=== PATIENT | male | born 1975 | race Two or more races ===

== ENCOUNTER 2024-05-06 00:59 | Emergency (ER) | payer SELFPAY ==
[~2024-05-06] VITALS: Ht 185.4 cm; Wt 97.7 kg
[2024-05-06 01:22] LABS: BASOPHILS % (AUTO) 0.4 % (0-1); EOSINOPHILS # (AUTO) 0.1 X10'3 (0-0.9); EOSINOPHILS % (AUTO) 1.6 % (0-6); HEMOGLOBIN 14.8 g/dl (14.0-17.9); LYMPHOCYTES # (AUTO) 3.2 X10'3 (1.1-4.8); LYMPHOCYTES % (AUTO) 35.8 % (21-51); MEAN CORPUSCULAR HEMOGLOBIN 30.5 PG (27.0-31.0); MEAN CORPUSCULAR HGB CONC 33.7 g/dL (33.0-36.5); MEAN CORPUSCULAR VOLUME 90.5 FL (78-98); MEAN PLATELET VOLUME 7.6 FL (7.4-10.4); MONOCYTES # (AUTO) 0.8 X10'3 (0-0.9); MONOCYTES % (AUTO) 9.2 % (2-12); NEUTROPHILS # (AUTO) 4.8 X10'3 (1.8-7.7); PLATELET COUNT 356 X10'3 (140-440); RED BLOOD COUNT 4.86 X10'6 (4.70-6.10); RED CELL DISTRIBUTION WIDTH 14.9 % (11.5-14.5)
[2024-05-06 01:29] LABS: ALANINE AMINOTRANSFERASE 38 U/L (12-78); ALBUMIN 3.9 G/DL (3.4-5.0); ALBUMIN/GLOBULIN RATIO 1.1 (1.1-1.5); ALKALINE PHOSPHATASE 80 IU/L (46-116); ANION GAP 9 (8-16); ASPARTATE AMINO TRANSFERASE 36 U/L (10-37); BILIRUBIN,TOTAL 0.5 MG/DL (0.1-1.0); BLOOD UREA NITROGEN 18 MG/DL (7-18); BUN/CREATININE RATIO 14.8 (10.0-20.0); CALCIUM 8.6 MG/DL (8.5-10.1); CHLORIDE 103 MMOL/L (99-107); CREATININE 1.22 MG/DL (0.60-1.10); GLUCOSE 102 MG/DL (70-104); POTASSIUM 3.2 MMOL/L (3.5-5.1); SODIUM 139 MMOL/L (135-145); TOTAL CARBON DIOXIDE 26.6 MMOL/L (24-32); TOTAL PROTEIN 7.3 G/DL (6.4-8.2); eCRCL 83 ML/MIN; eGFR 63 ML/MIN
[2024-05-06] MEDS: LORazepam 2 mg/ml vial IV ONE (01:33)
[2024-05-06 01:37] LABS: PRO BRAIN NATRIURETIC PEPTIDE < 30 PG/ML (0-125)
[2024-05-06] MEDS ORDERED: LORA-269 PO (03:36)
[2024-05-06 03:48] VITALS: BP 123/83; PULSE 101; RESP 14; TEMP 98.6; O2SAT 96
[2024-05-06] MEDS: chlordiazePOXIDE 25mg capsule PO ONE (03:52)
== END 2024-05-06 03:52 | disposition home or self-care (01) ==
LOC: ER 01:00
DX: F41.9 Anxiety disorder, unspecified (principal); R07.9 Chest pain, unspecified
CPT/HCPCS: 36415; 71045; 80053; 83880; 84484; 85025; 93005; 96374; 99285; J2060

== ENCOUNTER 2024-05-20 22:28 | Emergency (ER) | payer SELFPAY ==
[~2024-05-20] VITALS: Ht 185.4 cm; Wt 113.6 kg
[~2024-05-20 22:28] MED LIST: LORA-269 PO
[2024-05-20 22:38] VITALS: TEMP 97.7
[2024-05-20 22:51] LABS: BASOPHILS # (AUTO) 0.1 X10'3 (0-0.2); BASOPHILS % (AUTO) 0.7 % (0-1); EOSINOPHILS # (AUTO) 0.2 X10'3 (0-0.9); EOSINOPHILS % (AUTO) 2.4 % (0-6); HEMATOCRIT 45.5 % (42.0-52.0); HEMOGLOBIN 15.3 g/dl (14.0-17.9); LYMPHOCYTES # (AUTO) 3.3 X10'3 (1.1-4.8); LYMPHOCYTES % (AUTO) 39.7 % (21-51); MEAN CORPUSCULAR HEMOGLOBIN 30.6 PG (27.0-31.0); MEAN CORPUSCULAR HGB CONC 33.7 g/dL (33.0-36.5); MEAN CORPUSCULAR VOLUME 90.9 FL (78-98); MEAN PLATELET VOLUME 7.4 FL (7.4-10.4); MONOCYTES # (AUTO) 0.7 X10'3 (0-0.9); MONOCYTES % (AUTO) 8.8 % (2-12); NEUTROPHILS # (AUTO) 4.1 X10'3 (1.8-7.7); NEUTROPHILS % (AUTO) 48.4 % (42-75); PLATELET COUNT 323 X10'3 (140-440); RED BLOOD COUNT 5.01 X10'6 (4.70-6.10); RED CELL DISTRIBUTION WIDTH 14.8 % (11.5-14.5); WHITE BLOOD COUNT 8.4 X10'3 (4.5-11.0)
[2024-05-20 23:00] LABS: ALANINE AMINOTRANSFERASE 59 U/L (12-78); ALBUMIN 3.7 G/DL (3.4-5.0); ALBUMIN/GLOBULIN RATIO 1.1 (1.1-1.5); ALKALINE PHOSPHATASE 108 IU/L (46-116); ANION GAP 10 (8-16); ASPARTATE AMINO TRANSFERASE 37 U/L (10-37); BILIRUBIN,TOTAL 0.3 MG/DL (0.1-1.0); BLOOD UREA NITROGEN 22 MG/DL (7-18); BUN/CREATININE RATIO 17.5 (10.0-20.0); CALCIUM 8.9 MG/DL (8.5-10.1); CHLORIDE 106 MMOL/L (99-107); CREATININE 1.26 MG/DL (0.60-1.10); GLUCOSE 108 MG/DL (70-104); POTASSIUM 3.2 MMOL/L (3.5-5.1); SODIUM 142 MMOL/L (135-145); TOTAL CARBON DIOXIDE 25.8 MMOL/L (24-32); TOTAL PROTEIN 7.2 G/DL (6.4-8.2); eCRCL 80 ML/MIN; eGFR 61 ML/MIN
[2024-05-20] MEDS ORDERED: LORazepam 2 mg/ml vial IV ONE (23:05)
[2024-05-20 23:09] LABS: PRO BRAIN NATRIURETIC PEPTIDE < 30 PG/ML (0-125)
[2024-05-20] MEDS: LORazepam 2 mg/ml vial IM ONE (23:24)
[2024-05-20] MEDS: potassium Cl 20 mEq SR tablet PO STA (23:24)
[2024-05-21 00:26] VITALS: BP 125/89; PULSE 88; RESP 16; O2SAT 98
== END 2024-05-21 02:20 | disposition home or self-care (01) ==
LOC: ER 22:29
DX: F41.9 Anxiety disorder, unspecified (principal); Z79.899 Other long term (current) drug therapy
CPT/HCPCS: 36415; 71045; 80053; 83880; 84484; 85025; 93005; 96372; 99285; J2060

== ENCOUNTER 2024-09-29 00:22 | Emergency (ER) | payer OTHER ==
[~2024-09-29] VITALS: Ht 185.4 cm; Wt 90.9 kg
[2024-09-29] MEDS: diazepam 5mg tablet PO ONE (00:54)
[2024-09-29 00:56] LABS: BASOPHILS # (AUTO) 0.1 X10'3 (0-0.2); BASOPHILS % (AUTO) 0.9 % (0-1); EOSINOPHILS # (AUTO) 0.2 X10'3 (0-0.9); EOSINOPHILS % (AUTO) 2.5 % (0-6); HEMATOCRIT 47.1 % (42.0-52.0); HEMOGLOBIN 16.1 g/dl (14.0-17.9); LYMPHOCYTES # (AUTO) 3.2 X10'3 (1.1-4.8); LYMPHOCYTES % (AUTO) 34.6 % (21-51); MEAN CORPUSCULAR HGB CONC 34.1 g/dL (33.0-36.5); MEAN CORPUSCULAR VOLUME 90.9 FL (78-98); MONOCYTES # (AUTO) 0.7 X10'3 (0-0.9); MONOCYTES % (AUTO) 7.5 % (2-12); NEUTROPHILS # (AUTO) 5.1 X10'3 (1.8-7.7); NEUTROPHILS % (AUTO) 54.5 % (42-75); PLATELET COUNT 421 X10'3 (140-440); RED BLOOD COUNT 5.19 X10'6 (4.70-6.10); RED CELL DISTRIBUTION WIDTH 14.5 % (11.5-14.5); WHITE BLOOD COUNT 9.3 X10'3 (4.5-11.0)
[2024-09-29 01:12] LABS: ALANINE AMINOTRANSFERASE 37 U/L (12-78); ALBUMIN 3.7 G/DL (3.4-5.0); ALBUMIN/GLOBULIN RATIO 0.9 (1.1-1.5); ALKALINE PHOSPHATASE 98 IU/L (46-116); ANION GAP 12 (8-16); ASPARTATE AMINO TRANSFERASE 27 U/L (10-37); BILIRUBIN,TOTAL 0.5 MG/DL (0.1-1.0); BLOOD UREA NITROGEN 16 MG/DL (7-18); BUN/CREATININE RATIO 14.2 (10.0-20.0); CALCIUM 8.8 MG/DL (8.5-10.1); CHLORIDE 103 MMOL/L (99-107); CREATININE 1.13 MG/DL (0.60-1.10); GLUCOSE 110 MG/DL (70-104); POTASSIUM 4.1 MMOL/L (3.5-5.1); SODIUM 141 MMOL/L (135-145); TOTAL CARBON DIOXIDE 25.6 MMOL/L (24-32); TOTAL PROTEIN 7.6 G/DL (6.4-8.2); eCRCL 89 ML/MIN; eGFR 69 ML/MIN
[2024-09-29 01:31] VITALS: BP 117/70; PULSE 96; RESP 18; TEMP 97.9; O2SAT 99
== END 2024-09-29 01:42 | disposition home or self-care (01) ==
LOC: ER 00:22
DX: F41.0 Panic disorder [episodic paroxysmal anxiety] (principal)
CPT/HCPCS: 36415; 71045; 80053; 84484; 85025; 93005; 99285

== ENCOUNTER 2024-10-16 00:51 | Emergency (ER) | payer OTHER ==
[~2024-10-16] VITALS: Ht 185.4 cm; Wt 94.9 kg
[2024-10-16 00:54] VITALS: BP 139/99; PULSE 124; O2SAT 99
[2024-10-16 01:29] VITALS: RESP 20
[2024-10-16 03:26] VITALS: TEMP 98.6
== END 2024-10-16 03:26 | disposition left against medical advice (07) ==
LOC: ER 00:51
DX: F41.9 Anxiety disorder, unspecified (principal); Z53.21 Procedure and treatment not carried out due to patient leaving prior to being seen by health care provider
CPT/HCPCS: 93005

== ENCOUNTER 2025-01-12 19:48 | Emergency (ER) | payer OTHER ==
[~2025-01-12] VITALS: Ht 185.4 cm; Wt 85.0 kg
[2025-01-12 19:52] VITALS: BP 143/89; PULSE 110; RESP 16; TEMP 98.1; O2SAT 100
== END 2025-01-12 21:30 | disposition left against medical advice (07) ==
LOC: ER 19:49
DX: F41.9 Anxiety disorder, unspecified (principal); Z53.21 Procedure and treatment not carried out due to patient leaving prior to being seen by health care provider

== ENCOUNTER 2025-03-17 01:10 | Emergency (ER) | payer OTHER, MEDICAID ==
[~2025-03-17] VITALS: Ht 185.4 cm; Wt 95.5 kg
[2025-03-17 01:33] VITALS: TEMP 98.6
--- NOTE | 2025-03-17 01:35 | Physician Documentation ---
History of Present Illness ~ Chief Complaint: Palpitations Stated Complaint: RAPID HEART RATE Time Seen by MD: 01:35 Primary Medical Doctor: NONE HPI Patient presents to the emergency room with chief complaint of anxiety and heart racing. He states he has had this before and Ativan worked well for him. He denies any chest pain. He states he had a very hard in his stressful day at work today. Medication Reconciliation Allergies: Coded Allergies: No Known Allergies (Unverified , 10/16/24) Scheduled PRN Lorazepam (Ativan), 1 TAB PO Q12H PRN PRN for anxiety Review of Systems ROS All review of systems negative except as per HPI Physical Exam Vital Signs: Temperature: 98.6, Source: Temporal, Heart Rate: 101, Respiratory Rate: 16, BP: 163/93, Pulse Oximetry: 100, Weight: 95.450 Physical Exam General: Patient is awake, alert, oriented x4, anxious Head: Normocephalic and atraumatic. Eyes: Conjunctival normal. EOMI. PERRL. ENT: Mucous membranes moist. Neck: Supple, trachea is midline. Chest: Clear to auscultation bilaterally without rales, rhonchi, or wheezes. There is no accessory muscle use or retractions. Cardiac: Tachycardic and regular without murmurs, gallops, or rubs. Progress Results/Orders Results/Orders Completed Orders - KWAN AHN MD Lorazepam Inj (Ativan Inj) (03/17/25 01:40) Medications Received in ER Medications (Trade) Dose Ordered Sig/Chuck Route PRN Reason Start Time Stop Time Status Last Admin Dose Admin (Ativan inj) 2 mg ONCE ONCE IM 03/17/25 01:40 03/17/25 01:41 DC 03/17/25 02:00 2 MG Vital Signs 03/17/25 03/17/25 01:18 01:33 Temp 98.6 98.6 Pulse 106 101 Resp 18 16 B/P (MAP) 156/93 163/93 (116) Pulse Ox 100 100 EKG/XRAY/CT/US/VASC/MRI EKG : Additional Comment EKG interpreted by myself shows time of 0114, rate 113, sinus tachycardia, normal axis, no ST changes Medical Decision Making Findings Patient feels much better after Ativan administration. Patient presented to the emergency room for evaluation of feeling his heart raced in complaints of anxiety. Differentials include but are not limited to cardiac arrhythmia, anxiety attack, thyroid storm. As patient's symptoms resolved with Ativan administration symptoms likely secondary to anxiety we will treat him as such. Departure Disposition: HOME / SELF CARE / HOMELESS Impression: Primary Impression: Anxiety attack Condition: Improved Discharge Instructions: Panic Attack, Oylu-[id number] Referrals: NO PRIMARY CARE PROVIDER (PCP) Signature Scribe Signature: No scribe Attestation: The note accurately reflects work and decisions made by me.Kwan Ahn MD 03/17/25 02:28 KWAN AHN MD Mar 17, 2025 01:35
[2025-03-17 03:24] VITALS: BP 125/65; PULSE 102; RESP 16; O2SAT 96
--- NOTE | 2025-03-17 05:33 | ELECTROCARDIOGRAPH REPORT ---
[facility] Test Date: 2025-03-17 Test Time: 01:14:11 Pat Name: LOU MEDEL Department: EMERGENCY ROOM Room: Gender: M Panel Beater: : 1975 Requested By: DEPARTMENT EMERGENCY Order Number: [id number] Reading MD: Dr. Miguel Ángel Morrison Measurements Intervals [place] Rate: 113 P: 55 MI: 140 QRS: 13 QRSD: 97 T: 26 QT: 332 QTc: 456 Interpretive Statements Sinus tachycardia Probable left atrial enlargement RSR' in V1 or V2, probably normal variant Electronically Signed On 03-17-2025 6:16:[address] Miguel Ángel Morrison Please click the below link to view image of tracing.
== END 2025-03-17 03:26 | disposition home or self-care (01) ==
LOC: ER 01:10
DX: F41.0 Panic disorder [episodic paroxysmal anxiety] (principal)
CPT/HCPCS: 93005; 96372; 99283; J2060

== ENCOUNTER 2025-05-26 23:13 | Emergency (ER) | payer OTHER, MEDICAID ==
[~2025-05-26] VITALS: Ht 185.4 cm; Wt 88.6 kg
[2025-05-26 23:19] VITALS: TEMP 97.9
--- NOTE | 2025-05-26 23:23 | ELECTROCARDIOGRAPH REPORT ---
[facility] Test Date: 2025-05-26 Test Time: 23:21:01 Pat Name: LOU MEDEL Department: [facility]- Patient ID: [facility]-[id number] Room: Gender: M St[place]down Toe Former: : 1975 Requested By: KESHIA DE SANTIAGO Order Number: [id number] Reading MD: Measurements Intervals [place] Rate: 114 P: 55 SC: 140 QRS: 48 QRSD: 103 T: 27 QT: 326 QTc: 449 Interpretive Statements Sinus tachycardia LAE, consider biatrial enlargement RSR' in V1 or V2, probably normal variant Please click the below link to view image of tracing.
--- NOTE | 2025-05-26 23:35 | Physician Documentation ---
History of Present Illness ~ Chief Complaint: Chest Pain Stated Complaint: CHEST PAINS Time Seen by MD: 23:33 Primary Medical Doctor: NONE HPI Patient presents to the emergency room with unusual feeling this evening in some right-sided chest discomfort. Patient has had prior episodes which was attributed to anxiety. He has been seen here multiple times previously for similar complaints. States he took smallest bit of Xanax before coming here but it was ineffective. Medication Reconciliation Allergies: Coded Allergies: No Known Allergies (Unverified , 05/26/25) Scheduled PRN Lorazepam (Ativan), 1 TAB PO Q12H PRN PRN for anxiety Review of Systems ROS All review of systems negative except as per HPI Physical Exam Vital Signs: Temperature: 97.9, Source: Oral, Heart Rate: 117, Respiratory Rate: 18, BP: 15/108, Pulse Oximetry: 100, Weight: 88.640 Oxygen Flow Rate: 0 Physical Exam General: Patient is awake, alert, oriented x4, anxious Head: Normocephalic and atraumatic. Eyes: Conjunctival normal. EOMI. PERRL. ENT: Mucous membranes moist. Neck: Supple, trachea is midline. Chest: Clear to auscultation bilaterally without rales, rhonchi, or wheezes. There is no accessory muscle use or retractions. Cardiac: Tachycardic and regular without murmurs, gallops, or rubs. Progress Results/Orders Results/Orders Orders - KWAN AHN MD Chest,Single View (05/26/25 23:17) Monitor (05/26/25 23:17) Saline Lock (05/26/25 23:17) Oxygen (05/26/25 23:17) Hs Troponin I W Calculations (05/27/25 01:17) Hs Troponin I W Calculations (05/27/25 02:17) Electrocardiogram (05/26/25 23:16) Hs Troponin I W Calculations (05/27/25 01:16) Hs Troponin I W Calculations (05/27/25 02:16) Completed Orders - KWAN AHN MD Chest,Single View (05/26/25 23:17) Cbc/Diff (05/26/25 23:17) BMP (05/26/25 23:17) PBNP (05/26/25 23:17) Electrocardiogram (05/26/25 23:17) Hs Troponin I W Calculations (05/26/25 23:17) Diazepam Inj (Valium Inj) (05/26/25 23:40) Medications Received in ER Medications (Trade) Dose Ordered Sig/Chuck Route PRN Reason Start Time Stop Time Status Last Admin Dose Admin (Valium inj) 5 mg ONCE ONCE IV 05/26/25 23:40 05/26/25 23:41 DC 05/26/25 23:50 5 MG Vital Signs 05/26/25 05/26/25 05/26/25 23:19 23:29 23:50 Temp 97.9 Pulse 117 Resp 18 14 B/P (MAP) 15/108 Pulse Ox 100 O2 Flow Rate 0 Laboratory Tests Test 05/26/25 23:25 White Blood Count 7.6 Red Blood Count 5.47 Hemoglobin 17.1 Hematocrit 49.4 Mean Corpuscular Volume 90.3 Mean Corpuscular Hemoglobin 31.2 H Mean Corpuscular Hemoglobin Concent 34.6 Red Cell Distribution Width 14.7 H Platelet Count 384 Mean Platelet Volume 7.5 Neutrophils (%) (Auto) 50.0 Lymphocytes (%) (Auto) 38.1 Monocytes (%) (Auto) 9.2 Eosinophils (%) (Auto) 2.3 Basophils (%) (Auto) 0.4 Neutrophils # (Auto) 3.8 Lymphocytes # (Auto) 2.9 Monocytes # (Auto) 0.7 Eosinophils # (Auto) 0.2 Basophils # (Auto) 0.0 CBC Comment Sodium Level 139 Potassium Level 3.3 L Chloride Level 103 Carbon Dioxide Level 27.8 Anion Gap 8 Blood Urea Nitrogen 15 Creatinine 1.12 H Estimated GFR/1.73 m2 69 BUN/Creatinine Ratio 13.4 Glucose Level 112 H Calcium Level 8.9 Troponin I High Sensitivity 5 Pro-B-Type Natriuretic Peptide < 30 Albumin 3.9 Chemistry Comments EKG/XRAY/CT/US/VASC/MRI EKG : Additional Comment EKG interpreted by myself shows time of 12/04/2020, rate 114, sinus tachycardia, normal axis, no ST changes Chest X-Ray : Additional Comments Exam: CHEST,SINGLE VIEW CHEST RADIOGRAPH Indication: CP Technique: Single frontal view of the chest was obtained COMPARISON: DI CHEST,SINGLE VIEW on DOS: 09/29/24, DI CHEST,SINGLE VIEW on DOS: 9/3/24, DI CHEST,SINGLE VIEW on DOS: 05/06/24 FINDINGS: Lines and Tubes: None Lungs: Clear Pleura: No effusion. No pneumothorax. Cardiomediastinal contours: Unremarkable Bones: Unremarkable IMPRESSION: 1. No acute disease. Medical Decision Making Findings Patient presents to the emergency room as per HPI. Differentials include but are not limited to ACS, anxiety, musculoskeletal pain, pneumothorax therefore emergent labs and imaging indicated. Labs reassuring as his chest x-ray. Patient has responded to therapy. Patient with heart score of two. ER pr ecautions discussed Departure Disposition: HOME / SELF CARE / HOMELESS Impression: Primary Impression: Anxiety attack Additional Impression: Chest pain Condition: Improved Discharge Instructions: Nonspecific Chest Pain, Adult Referrals: NO PRIMARY CARE PROVIDER (PCP) Signature Scribe Signature: No scribe Attestation: The note accurately reflects work and decisions made by me.Kwan Ahn MD 05/27/25 00:32 KWAN AHN MD May 26, 2025 23:35
[2025-05-26 23:43] LABS: MEAN PLATELET VOLUME 7.5 FL (7.4-10.4); RED CELL DISTRIBUTION WIDTH 14.7 % (11.5-14.5)
--- NOTE | 2025-05-26 23:45 | RADIOLOGY REPORT ---
CHEST RADIOGRAPH Indication: CP Technique: Single frontal view of the chest was obtained COMPARISON: DI CHEST,SINGLE VIEW on DOS: 09/29/24, DI CHEST,SINGLE VIEW on DOS: 05/20/24, DI CHEST,SINGLE VIEW on DOS: 05/06/24 FINDINGS: Lines and Tubes: None Lungs: Clear Pleura: No effusion. No pneumothorax. Cardiomediastinal contours: Unremarkable Bones: Unremarkable IMPRESSION: 1. No acute disease.
[2025-05-26] MEDS: diazepam inj 5 MG/ML inj. IV ONE (23:50)
[2025-05-26 23:59] LABS: CREATININE 1.12 MG/DL (0.60-1.10); PRO BRAIN NATRIURETIC PEPTIDE < 30 PG/ML (0-125); TOTAL CARBON DIOXIDE 27.8 MMOL/L (24-32); eCRCL 89 ML/MIN; eGFR 69 ML/MIN
[2025-05-27 01:48] VITALS: BP 134/89; PULSE 93; RESP 16; O2SAT 90
[2025-05-28] MEDS ORDERED: ALPR-624 PO (01:38)
== END 2025-05-27 01:49 | disposition home or self-care (01) ==
LOC: ER 23:14
DX: F41.0 Panic disorder [episodic paroxysmal anxiety] (principal); R07.89 Other chest pain
CPT/HCPCS: 36415; 71045; 80048; 84484; 85025; 93005; 96374; 99285; J3360; 83880; A4615

== ENCOUNTER 2025-05-27 23:52 | Emergency (ER) | payer OTHER, MEDICAID ==
[~2025-05-27] VITALS: Ht 185.4 cm; Wt 88.6 kg
--- NOTE | 2025-05-27 23:57 | ELECTROCARDIOGRAPH REPORT ---
[facility] Test Date: 2025-05-27 Test Time: 23:54:18 Pat Name: LOU MEDEL Department: [facility]- Patient ID: [facility]-[id number] Room: Gender: M Delivery Consultant: : 1975 Requested By: KESHIA DE SANTIAGO Order Number: [id number] Reading MD: Measurements Intervals [place] Rate: 119 P: 63 MA: 137 QRS: 50 QRSD: 90 T: -14 QT: 311 QTc: 438 Interpretive Statements Sinus tachycardia Borderline T abnormalities, inferior leads Please click the below link to view image of tracing.
[2025-05-28 00:01] VITALS: BP 162/96; PULSE 121; RESP 15; O2SAT 100
--- NOTE | 2025-05-28 00:19 | Physician Documentation ---
History of Present Illness ~ Chief Complaint: Chest Wall Pain Stated Complaint: CHEST DISCOMFORT Time Seen by MD: 00:17 Primary Medical Doctor: NONE HPI Patient presents to the emergency room with chief complaint of anxiety and chest pain. He was seen here for similar complaints last night by myself. Troponins negative at that time and he responded to anxiolytics. He states he works with his primary care regarding his anxiety however he has not seen a primary care in a long time. Medication Reconciliation Allergies: Coded Allergies: No Known Allergies (Unverified , 05/26/25) Scheduled PRN Alprazolam (Xanax), 1 TAB PO Q12H PRN PRN for anxiety, (Reported) Lorazepam (Ativan), 1 TAB PO Q12H PRN PRN for anxiety Review of Systems ROS All review of systems negative except as per HPI Physical Exam Vital Signs: Temperature: 97.6, Source: Oral, Heart Rate: 121, Respiratory Rate: 15, BP: 162/96, Pulse Oximetry: 100, Weight: 88.640 Oxygen Flow Rate: 0 Physical Exam General: Patient is awake, alert, oriented x4. Anxious Head: Normocephalic and atraumatic. Eyes: Conjunctival normal. EOMI. PERRL. ENT: Mucous membranes moist. Neck: Supple, trachea is midline. Chest: Clear to auscultation bilaterally without rales, rhonchi, or wheezes. There is no accessory muscle use or retractions. Cardiac: Tachycardic and regular without murmurs, gallops, or rubs. Extremities: Normal strength. Normal range of motion. No deformities or edema. No calf tenderness to palpation Progress Results/Orders Results/Orders Completed Orders - KWAN AHN MD Electrocardiogram (05/27/25 23:53) Midazolam 1 Mg/Ml 5ml Inj (Versed 1 Mg/M (05/28/25 00:20) Drug Screen, Urine (05/28/25 00:47) Cbc/Diff (05/28/25 00:52) PBNP (05/28/25 00:52) D-Dimer (05/28/25 00:52) BMP (05/28/25 00:52) Hs Troponin I W Calculations (05/28/25 00:52) Normal Saline 1000ml (0.9% Sodium Chlori (05/28/25 00:55) Medications Received in ER Medications (Trade) Dose Ordered Sig/Chuck Route PRN Reason Start Time Stop Time Status Last Admin Dose Admin Sodium Chloride 1,000 ml @ 1,000 mls/hr ONCE ONCE IV 05/28/25 00:55 05/28/25 01:54 DC 05/28/25 01:16 1,000 MLS/HR Vital Signs 05/28/25 00:01 Temp 97.6 Pulse 121 Resp 15 B/P (MAP) 162/96 Pulse Ox 100 O2 Flow Rate 0 Laboratory Tests Test 05/28/25 00:55 05/28/25 01:02 Urine Opiates Screen Negative Urine Methadone Screen Negative Urine Fentanyl Screen Negative Urine Barbiturates Screen Negative Urine Phencyclidine Screen Negative Urine Amphetamines Screen Positive Urine Benzodiazepines Screen Positive Urine Cocaine Screen Negative Urine Cannabinoids Screen Negative Drug Screen Comment White Blood Count 8.5 Red Blood Count 5.54 Hemoglobin 16.9 Hematocrit 50.4 Mean Corpuscular Volume 90.9 Mean Corpuscular Hemoglobin 30.5 Mean Corpuscular Hemoglobin Concent 33.6 Red Cell Distribution Width 14.6 H Platelet Count 404 Mean Platelet Volume 7.6 Neutrophils (%) (Auto) 47.7 Lymphocytes (%) (Auto) 41.8 Monocytes (%) (Auto) 7.8 Eosinophils (%) (Auto) 2.2 Basophils (%) (Auto) 0.5 Neutrophils # (Auto) 4.0 Lymphocytes # (Auto) 3.5 Monocytes # (Auto) 0.7 Eosinophils # (Auto) 0.2 Basophils # (Auto) 0.0 CBC Comment D-Dimer < 0.19 D-Dimer Comment Sodium Level 144 Potassium Level 3.2 L Chloride Level 107 Carbon Dioxide Level 26.4 Anion Gap 11 Blood Urea Nitrogen 11 Creatinine 1.38 H Estimated GFR/1.73 m2 55 BUN/Creatinine Ratio 8.0 L Glucose Level 106 H Calcium Level 8.5 Troponin I High Sensitivity 21 Troponin I High Sens Percent Delta 320 Troponin I Hi Sens Absolute Change 16 Pro-B-Type Natriuretic Peptide < 30 Albumin 3.8 Chemistry Comments EKG/XRAY/CT/US/VASC/MRI EKG : Additional Comment EKG interpreted by myself shows time of 12/04/2053, rate 119, sinus tachycardia, normal axis, no ST changes Medical Decision Making Findings Patient presents to the emergency room for evaluation of anxiety. Differentials include but are not limited to anxiety, cardiac arrhythmia, pulmonary embolism, drug intoxication therefore emergent labs and imaging ordered. Labs significant for positive amphetamines and benzodiazepines. He states he is around a lot of hotels or that has amphetamines but this would not cause his drug screen to be positive. After have long conversation with him he does state that he has supplemented his anxiety from street drugs for anxiety and are not prescription. I suspect that has getting on the street is amphetamines. Looked up patient's cures report and [facility] and he has only been to our facility and no medications filled. He does working [employer] as well. I have instructed him that he can not be taking street drugs and expect a prescription for an addictive substance. Has been instructed not to do street drugs anymore as I believe this is causing his anxiety as it is likely amphetamine. Spoke with him that this inappropriate that he is coming to the ER several times to treat his anxiety disorder. I have instructed him that he needs to follow up with his doctor for this. Departure Disposition: HOME / SELF CARE / HOMELESS Impression: Primary Impression: Anxiety attack Condition: Stable Additional Instructions: Do not take street drugs. Your anxiety is likely been exacerbated by amphetamines which you tested positive for. Follow up with your doctor for anxiety management. Referrals: NO PRIMARY CARE PROVIDER (PCP) Signature Scribe Signature: No scribe Attestation: The note accurately reflects work and decisions made by me.Kwan Ahn MD 05/28/25 02:09 KWAN AHN MD May 28, 2025 00:19
[2025-05-28] MEDS: normal saline 1000ml 1,000 ML IV ONE (01:16)
[2025-05-28 01:17] LABS: MEAN PLATELET VOLUME 7.6 FL (7.4-10.4); RED CELL DISTRIBUTION WIDTH 14.6 % (11.5-14.5)
[2025-05-28 01:28] LABS: URINE AMPHETAMINE SCREEN POSITIVE (Neg); URINE BARBITUATE SCREEN NEGATIVE (Neg); URINE BENZODIAZEPINES SCREEN POSITIVE (Neg); URINE CANNABINOID SCREEN NEGATIVE (Neg); URINE COCAINE SCREEN NEGATIVE (Neg); URINE METHADONE SCREEN NEGATIVE (Neg); URINE OPIATE SCREEN NEGATIVE (Neg); URINE PHENCYCLIDINE SCREEN NEGATIVE (Neg)
[2025-05-28] MEDS ORDERED: ALPR-624 PO (01:38)
[2025-05-28 01:39] LABS: CREATININE 1.38 MG/DL (0.60-1.10); PRO BRAIN NATRIURETIC PEPTIDE < 30 PG/ML (0-125); TOTAL CARBON DIOXIDE 26.4 MMOL/L (24-32); eCRCL 72 ML/MIN; eGFR 55 ML/MIN
[2025-05-28] MEDS: MIDAZolam 1 MG/ML 5ML VIAL IM ONE (02:07)
[2025-05-28 02:21] VITALS: TEMP 97.6
== END 2025-05-28 02:26 | disposition home or self-care (01) ==
LOC: ER 23:52
DX: F41.0 Panic disorder [episodic paroxysmal anxiety] (principal); R06.02 Shortness of breath; R07.9 Chest pain, unspecified; Z79.899 Other long term (current) drug therapy
CPT/HCPCS: 36415; 80048; 80305; 83880; 84484; 85025; 85379; 93005; 96361; 96374; 99284; J1200; J7030